=== PATIENT | female | born 1960 | race Caucasian/White ===

== ENCOUNTER 2018-07-24 16:25 | Outpatient (CLI) | payer BC ==
--- NOTE | 2018-07-24 18:27 | RAD ---
RIGHT FOREARM TWO VIEW SERIES: 07/24/18 INDICATION: Pain. FINDINGS: No fracture or dislocation of the right forearm. IMPRESSION: No acute osseous abnormality. POS: [facility]
--- NOTE | 2018-07-24 18:28 | RAD ---
RIGHT ELBOW TWO VIEW: 07/24/18 INDICATION: Pain. FINDINGS: No fracture or dislocation of the right elbow. There is no significant joint capsular distention. IMPRESSION: No acute osseous abnormality of the right elbow. POS: [facility]
== END 2018-07-24 16:26 | disposition home or self-care (01) ==
LOC: SCSRAD 16:25
PROVIDERS: ATTEND Family Medicine
DX: M79.601 Pain in right arm (principal)

== ENCOUNTER 2019-06-17 08:59 | Outpatient (CLI) | payer BC | END 2019-06-17 09:00 | disposition home or self-care (01) | LOC: CTENTCT 08:59 | PROVIDERS: ATTEND Otolaryngology Plastic Surgery within the Head & Neck | DX: J32.9 Chronic sinusitis, unspecified (principal) | CPT/HCPCS: 70486 ==

== ENCOUNTER 2019-06-26 08:54 | Outpatient (CLI) | payer BC ==
--- NOTE | 2019-06-26 09:26 | RAD ---
Exam: XR Knee Rt 4 View STANDARD HISTORY: Right knee pain COMPARISON: None FINDINGS: No acute fracture, dislocation, or other acute osseous abnormality is identified. IMPRESSION: No acute osseous abnormality is identified.
--- NOTE | 2019-06-26 09:27 | RAD ---
Exam: XR Elbow Rt 4 View STANDARD HISTORY: Right elbow pain COMPARISON: None FINDINGS: Tiny osteophyte is seen at the coracoid process of the ulna. The lateral view is obtained in only par tial flexion. No acute fracture, dislocation, or other acute osseous abnormality is identified. IMPRESSION: No acute osseous abnormality is identified.
== END 2019-06-26 08:55 | disposition home or self-care (01) ==
LOC: RAD 08:54
PROVIDERS: ATTEND Nurse Practitioner Family
DX: M25.521 Pain in right elbow (principal); M25.561 Pain in right knee

== ENCOUNTER 2020-07-05 10:37 | Outpatient (CLI) | payer BC ==
--- NOTE | 2020-07-05 11:37 | RAD ---
Exam:3 views left knee HISTORY: Pain COMPARISON: None FINDINGS: Preserved joint spaces. No joint effusion. No fracture or malalignment. IMPRESSION: No fracture or malalignment.
== END 2020-07-05 10:38 | disposition home or self-care (01) ==
LOC: SCSRAD 10:37
PROVIDERS: ATTEND Family Medicine
DX: M25.562 Pain in left knee (principal)
CPT/HCPCS: 36415; 80053; 84443; 85025

== ENCOUNTER 2023-10-11 09:41 | Outpatient (CLI) | payer BC | END 2023-10-11 09:42 | disposition home or self-care (01) | LOC: SCSMRI 09:41 | PROVIDERS: ATTEND Family Medicine | DX: M79.672 Pain in left foot (principal); M76.72 Peroneal tendinitis, left leg ==

== ENCOUNTER 2024-09-18 06:52 | Day surgery (SDC) | payer BC ==
[2024-09-17 12:47] VITALS: BMI 21.1
[~2024-09-18 06:52] MED LIST: Fluorouracil 100 MG, Enoxaparin 25 MG, EPINEPHrine 0.3 MG in Ophthalmic Irrigation Solu... IRR SCH
[2024-09-18] MEDS ORDERED: PHENYLephrine 2.5% Ophth Soln 15 ml Bottle ONE (07:16)
[2024-09-18] MEDS ORDERED: Cyclopentolate 1% Opth Drop 2 ML BOT ONE (07:17)
[2024-09-18] MEDS ORDERED: Midazolam HCl 2 mg/2 ml Vial ONE (08:13)
[2024-09-18] MEDS ORDERED: fentaNYL PF 100 MCG/2 ML SYRINGE ONE (08:13)
== END 2024-09-18 11:15 | disposition home or self-care (01) ==
LOC: SDC 06:52
PROVIDERS: ATTEND Ophthalmology Retina Specialist
PROC: 08T53ZZ Resection of Left Vitreous, Percutaneous Approach (ICD-10-PCS; principal; 2024-09-18)
DX: H33.002 Unspecified retinal detachment with retinal break, left eye (principal); E03.9 Hypothyroidism, unspecified; Z90.710 Acquired absence of both cervix and uterus
CPT/HCPCS: 67025; J0171; J1650; J2250; J9190